=== PATIENT | female | born 1960 | race African-American/Black ===

== ENCOUNTER 2020-06-08 06:36 | Emergency (ER) | payer OTHER ==
[~2020-06-08 06:36] MED LIST: ACETAMINOPHEN-1 EAC1 PO; AMITRIPTYLINE 550 MG PO; CARDIZEM CD180 MG PO; CLONAZEPAM 1MG T1 MG PO; COREG25 MG PO; COUMADIN10 MG PO; COUMADIN5 MG PO; COZAAR 25MG TAB25 MG PO; FUROSEMIDE 40MG40 MG PO; K-DUR20 MEQ PO; LINZESS145 MCG PO; METFORMIN HCL500 M4 PO; NIFEREX150 MG PO; PLAQUENIL200 MG PO; PREDNISONE5 MG PO; PROTONIX 40MG T40 MG PO; SYMBICORT 1601 PUFFS PO; SYNTHROID50 MCG PO; VENTOLIN (2.5 MG/3 M PO; VENTOLIN HFA IN18 GM PO; VITAMIN D31000 UNI1 PO
[2020-06-08 08:06] LABS: BASOPHIL 0.2 % (0-2); EOSINOPHIL 0.7 % (0-5); HCT 32.7 % (37.0-47.0); HGB 9.4 g/dl (12.5-16.0); LYMPHOCYTE 12.5 % (15-48); MCH 26.8 pg (25.0-31.0); MCHC 28.7 g/dL (32.0-36.0); MCV 93.2 fL (78.0-100.0); MPV 9.5 fL (6.0-9.5); NEUTROPHIL 77.2 % (41-80); NRBC 0; PLT 309 K/uL (150-400); RBC 3.51 M/uL (4.20-5.40); RDW 14.1 % (11.5-14.0); WBC 11.1 K/uL (4.0-10.5)
[2020-06-08 08:15] LABS: INR 1.13 (0.9-1.2); PROTHROMBIN TIME 13.8 SECONDS (11.4-13.6); PTT 32.7 SECONDS (22.2-34.7)
[2020-06-08 08:22] LABS: ALBUMIN 3.2 g/dL (3.4-5.0); BILIRUBIN - TOTAL 0.2 mg/dL (0.2-1.0); BUN/CREAT RATIO (CALC) 10.3 RATIO; CREATININE 0.87 mg/dL (0.51-0.95); GLOBULIN (CALCULATION) 3.3 g/dL; POTASSIUM 3.9 mmol/L (3.5-5.1); TOTAL PROTEIN 6.5 g/dL (6.4-8.2)
[2020-06-08 08:30] LABS: LACTIC ACID 1.6 mmol/L (0.4-1.9)
[2020-06-08 08:48] LABS: CORONAVIRUS 2019 SARS-COV-2 NEGATIVE (NEGATIVE); INFLUENZA A NAA NEGATIVE (NEGATIVE)
[2020-11-23] MEDS ORDERED: KEFLEX250 MG PO (10:41)
[2020-12-14] MEDS ORDERED: ALDACTONE50 MG PO (14:15)
[2020-12-14] MEDS ORDERED: UROCIT-K10 MEQ PO (14:17)
[2020-12-14] MEDS ORDERED: PROPAFENONE HC300 MG PO (14:17)
[2020-12-19] MEDS ORDERED: PROZAC20 MG PO (08:41)
[2020-12-19] MEDS ORDERED: MYCOPHENOLATE PO (08:42)
== END 2020-06-08 12:41 | disposition home or self-care (01) ==
LOC: FER 06:36
PROVIDERS: Emergency Medicine
DX: I11.0 Hypertensive heart disease with heart failure (principal); I50.9 Heart failure, unspecified; I44.0 Atrioventricular block, first degree; R60.0 Localized edema; I25.10 Atherosclerotic heart disease of native coronary artery without angina pectoris; I48.91 Unspecified atrial fibrillation; Z99.81 Dependence on supplemental oxygen; Z88.2 Allergy status to sulfonamides; Z88.6 Allergy status to analgesic agent; Z88.8 Allergy status to other drugs, medicaments and biological substances; Z88.5 Allergy status to narcotic agent; Z20.822 Contact with and (suspected) exposure to COVID-19
CPT/HCPCS: 36415; 36600; 71045; 80053; 82803; 83605; 83880; 84484; 85025; 85379; 85610; 85730; 87040; 93005; 96374; J1940; U0002

== ENCOUNTER 2020-07-30 03:29 | Emergency (ER) | payer OTHER ==
[2020-07-30 04:39] LABS: BASOPHIL 0.2 % (0-2); EOSINOPHIL 0 % (0-5); HCT 29.6 % (37.0-47.0); HGB 8.8 g/dl (12.5-16.0); LYMPHOCYTE 8.2 % (15-48); MCH 26.7 pg (25.0-31.0); MCHC 29.7 g/dL (32.0-36.0); MCV 89.7 fL (78.0-100.0); MONOCYTE 8.6 % (0-12); MPV 10.3 fL (6.0-9.5); NEUTROPHIL 82.4 % (41-80); NRBC 0; PLT 250 K/uL (150-400); RDW 14.8 % (11.5-14.0); WBC 4.8 K/uL (4.0-10.5)
[2020-07-30 05:15] LABS: ALBUMIN 2.8 g/dL (3.4-5.0); BILIRUBIN - TOTAL 0.2 mg/dL (0.2-1.0); BUN/CREAT RATIO (CALC) 12.8 RATIO; CREATININE 0.94 mg/dL (0.51-0.95); GLOBULIN (CALCULATION) 3.8 g/dL; POTASSIUM 3.9 mmol/L (3.5-5.1); TOTAL PROTEIN 6.6 g/dL (6.4-8.2)
[2020-07-30 05:16] LABS: LACTIC ACID 1.9 mmol/L (0.4-1.9)
[2020-07-30 07:57] LABS: INFLUENZA A NAA NEGATIVE (NEGATIVE)
[2020-07-30 07:58] LABS: CORONAVIRUS 2019 SARS-COV-2 POSITIVE (NEGATIVE)
[2020-07-30] MEDS ORDERED: PREDNISONE 20MG20 MG PO (08:22)
[2020-07-30] MEDS ORDERED: CEFDINIR300 MG PO (08:22)
[2020-07-30] MEDS ORDERED: VENTOLIN HFA IN18 GM INH (08:22)
[2020-11-23] MEDS ORDERED: KEFLEX250 MG PO (10:41)
[2020-12-14] MEDS ORDERED: ALDACTONE50 MG PO (14:15)
[2020-12-14] MEDS ORDERED: PROPAFENONE HC300 MG PO (14:17)
[2020-12-14] MEDS ORDERED: UROCIT-K10 MEQ PO (14:17)
[2020-12-19] MEDS ORDERED: PROZAC20 MG PO (08:41)
[2020-12-19] MEDS ORDERED: MYCOPHENOLATE PO (08:42)
== END 2020-07-30 11:30 | disposition other institution (70) ==
LOC: FER 03:29
PROVIDERS: Emergency Medicine
DX: U07.1 COVID-19 (principal); J12.82 Pneumonia due to coronavirus disease 2019; R79.89 Other specified abnormal findings of blood chemistry; E11.9 Type 2 diabetes mellitus without complications; I50.9 Heart failure, unspecified; Z99.81 Dependence on supplemental oxygen; Z88.6 Allergy status to analgesic agent; Z88.2 Allergy status to sulfonamides; Z88.5 Allergy status to narcotic agent; Z88.1 Allergy status to other antibiotic agents; Z91.041 Radiographic dye allergy status
CPT/HCPCS: 36415; 71045; 80053; 83605; 83880; 84484; 85025; 93005; 94640; 94664; J1885; J2405; J2543; J2930; J7040; U0002

== ENCOUNTER 2020-10-03 08:07 | Inpatient (IN) | payer OTHER ==
[~2020-10-03 08:07] MED LIST changes: +CEFDINIR300 MG PO; +PREDNISONE 20MG20 MG PO; +VENTOLIN HFA IN18 GM INH
[2020-10-03 09:19] LABS: BASOPHIL 0.4 % (0-2); HCT 26.6 % (37.0-47.0); HGB 7.8 g/dl (12.5-16.0); LYMPHOCYTE 12.2 % (15-48); MCH 25.2 pg (25.0-31.0); MCHC 29.3 g/dL (32.0-36.0); MCV 85.8 fL (78.0-100.0); MONOCYTE 7.6 % (0-12); MPV 9.4 fL (6.0-9.5); NEUTROPHIL 76.7 % (41-80); NRBC 0; PLT 365 K/uL (150-400); RDW 15.7 % (11.5-14.0); WBC 9.2 K/uL (4.0-10.5)
[2020-10-03 09:28] LABS: INR 1.09 (0.9-1.2); PROTHROMBIN TIME 13.4 SECONDS (11.4-13.6); PTT 34.3 SECONDS (22.2-34.7)
[2020-10-03 09:35] LABS: ALBUMIN 3.1 g/dL (3.4-5.0); BILIRUBIN - TOTAL 0.4 mg/dL (0.2-1.0); BUN/CREAT RATIO (CALC) 8.6 RATIO; CREATININE 0.81 mg/dL (0.51-0.95); GLOBULIN (CALCULATION) 3.6 g/dL; POTASSIUM 3.5 mmol/L (3.5-5.1); TOTAL PROTEIN 6.7 g/dL (6.4-8.2)
[2020-10-03 10:23] LABS: CKMB <0.5 ng/mL (0.0-3.6); PRO-BNP 1379 pg/mL (<125)
[2020-10-03 10:54] LABS: RETICULOCYTE COUNT 2.4 % (1.0-2.0)
[2020-10-03 10:56] LABS: IRON % SATURATION 10.4 %SAT (20-50)
[2020-10-03 11:29] LABS: FOLIC ACID (SERUM) 15.8 ng/mL (8.6-58.9)
[2020-10-03] MEDS ORDERED: ELIQUIS2.5 MG PO (12:55)
[2020-10-03] MEDS ORDERED: RYTHMOL150 MG PO (12:55)
[2020-10-03] MEDS ORDERED: PHENERGAN25 M1 PO (12:59)
[2020-10-03] MEDS ORDERED: AMITIZA24 MCG PO (13:07)
[2020-10-03] MEDS ORDERED: PROAIR HFA8.5 GM INH (13:12)
[2020-10-03] MEDS ORDERED: TORSEMIDE10 MG PO (13:14)
[2020-10-04 06:11] LABS: BASOPHIL 0.6 % (0-2); EOSINOPHIL 2.9 % (0-5); HCT 25.6 % (37.0-47.0); HGB 7.4 g/dl (12.5-16.0); LYMPHOCYTE 19.9 % (15-48); MCH 24.8 pg (25.0-31.0); MCHC 28.9 g/dL (32.0-36.0); MCV 85.9 fL (78.0-100.0); MONOCYTE 9.6 % (0-12); MPV 9.5 fL (6.0-9.5); NEUTROPHIL 66.7 % (41-80); NRBC 0; PLT 342 K/uL (150-400); RBC 2.98 M/uL (4.20-5.40); RDW 15.6 % (11.5-14.0); WBC 6.9 K/uL (4.0-10.5)
[2020-10-04 06:29] LABS: BUN/CREAT RATIO (CALC) 8.3 RATIO; CREATININE 0.72 mg/dL (0.51-0.95); POTASSIUM 3.2 mmol/L (3.5-5.1)
[2020-10-05 06:16] LABS: BASOPHIL 0.6 % (0-2); EOSINOPHIL 2.6 % (0-5); HCT 28.3 % (37.0-47.0); HGB 8.2 g/dl (12.5-16.0); LYMPHOCYTE 21.5 % (15-48); MCH 25.2 pg (25.0-31.0); MCV 86.8 fL (78.0-100.0); MPV 9.8 fL (6.0-9.5); NEUTROPHIL 66.1 % (41-80); NRBC 0; PLT 378 K/uL (150-400); RBC 3.26 M/uL (4.20-5.40); RDW 15.4 % (11.5-14.0); WBC 8.9 K/uL (4.0-10.5)
[2020-10-05 06:47] LABS: BUN/CREAT RATIO (CALC) 13.3 RATIO; CREATININE 0.75 mg/dL (0.51-0.95); MAGNESIUM 1.8 mg/dL (1.8-2.4); POTASSIUM 4.1 mmol/L (3.5-5.1)
[2020-10-06 08:38] LABS: HGB 8.7 g/dl (12.5-16.0); MCH 25.4 pg (25.0-31.0); MCV 87.5 fL (78.0-100.0); MPV 9.3 fL (6.0-9.5); RBC 3.43 M/uL (4.20-5.40); RDW 15.5 % (11.5-14.0); WBC 9.9 K/uL (4.0-10.5)
[2020-10-06 08:57] LABS: BUN/CREAT RATIO (CALC) 13.4 RATIO; CREATININE 0.82 mg/dL (0.51-0.95); POTASSIUM 4.4 mmol/L (3.5-5.1)
[2020-10-06] MEDS ORDERED: BUMEX1 MG PO (13:55)
[2020-11-23] MEDS ORDERED: KEFLEX250 MG PO (10:41)
[2020-12-14] MEDS ORDERED: ALDACTONE50 MG PO (14:15)
[2020-12-14] MEDS ORDERED: PROPAFENONE HC300 MG PO (14:17)
[2020-12-14] MEDS ORDERED: UROCIT-K10 MEQ PO (14:17)
[2020-12-19] MEDS ORDERED: PROZAC20 MG PO (08:41)
[2020-12-19] MEDS ORDERED: MYCOPHENOLATE PO (08:42)
== END 2020-10-06 15:32 | disposition home or self-care (01) | DRG 293 ==
LOC: FER 08:07 → FMS 10:35
PROVIDERS: Emergency Medicine; ADMIT Internal Medicine
DX: I11.0 Hypertensive heart disease with heart failure (principal); I50.23 Acute on chronic systolic (congestive) heart failure; Z20.822 Contact with and (suspected) exposure to COVID-19; J84.10 Pulmonary fibrosis, unspecified; I25.10 Atherosclerotic heart disease of native coronary artery without angina pectoris; I48.0 Paroxysmal atrial fibrillation; M32.9 Systemic lupus erythematosus, unspecified; K21.9 Gastro-esophageal reflux disease without esophagitis; K57.90 Diverticulosis of intestine, part unspecified, without perforation or abscess without bleeding; M81.0 Age-related osteoporosis without current pathological fracture; D50.9 Iron deficiency anemia, unspecified; E87.6 Hypokalemia; Z86.16 Personal history of COVID-19; Z90.49 Acquired absence of other specified parts of digestive tract; Z96.82 Presence of neurostimulator; Z90.710 Acquired absence of both cervix and uterus; Z98.890 Other specified postprocedural states; Z88.8 Allergy status to other drugs, medicaments and biological substances; Z88.6 Allergy status to analgesic agent; Z91.041 Radiographic dye allergy status; Z79.01 Long term (current) use of anticoagulants; Z79.52 Long term (current) use of systemic steroids; Z79.899 Other long term (current) drug therapy
CPT/HCPCS: 36415; 71046; 80048; 80053; 82553; 82607; 82728; 82746; 83540; 83550; 83735; 83880; 84484; 85025; 85610; 85730; 86880; 93005; J1940; J2916; J7512; U0002

== ENCOUNTER → 2020-12-19 | Day surgery (SDC) | payer OTHER ==
[~2020-12-19] VITALS: Ht 162.6 cm; Wt 85.7 kg
[~2020-12-19] MED LIST changes: +ALDACTONE50 MG PO; +AMITIZA24 MCG PO; +AUGMENTIN 875-1 EACH PO; +BUMEX1 MG PO; +CYCLOBENZAPRINE10 MG PO; +DILAUDID2 MG PO; +ELIQUIS2.5 MG PO; +KEFLEX250 MG PO; +METFORMIN HCL500 MG PO; +MIRALAX17 GM PO; +MYCOPHENOLATE PO; +PHENERGAN25 M1 PO; +PREDNISONE 10MG10 MG PO; +PROAIR HFA8.5 GM INH; +PROPAFENONE HC300 MG PO; +PROZAC20 MG PO; +RYTHMOL150 MG PO; +SENOKOT8.6 MG PO; +TORSEMIDE10 MG PO; +UROCIT-K10 MEQ PO; +VIBRAMYCIN100 MG PO
[2020-12-19 09:18] LABS: HCT 30.8 % (37.0-47.0); HGB 9.4 g/dl (12.5-16.0); MCH 27.3 pg (25.0-31.0); MCHC 30.5 g/dL (32.0-36.0); MCV 89.5 fL (78.0-100.0); MPV 9.1 fL (6.0-9.5); RBC 3.44 M/uL (4.20-5.40); RDW 16.1 % (11.5-14.0); WBC 8.3 K/uL (4.0-10.5)
[2020-12-19 09:23] LABS: BUN/CREAT RATIO (CALC) 10.3 RATIO; CREATININE 0.97 mg/dL (0.51-0.95); POTASSIUM 3.7 mmol/L (3.5-5.1)
== END | disposition home or self-care (01) ==
LOC: FAS 08:10
PROVIDERS: Surgery
DX: D50.0 Iron deficiency anemia secondary to blood loss (chronic) (principal); K31.9 Disease of stomach and duodenum, unspecified; J84.10 Pulmonary fibrosis, unspecified; M19.90 Unspecified osteoarthritis, unspecified site; I11.0 Hypertensive heart disease with heart failure; I50.9 Heart failure, unspecified; I48.91 Unspecified atrial fibrillation; K50.90 Crohn's disease, unspecified, without complications; G43.909 Migraine, unspecified, not intractable, without status migrainosus; Z99.81 Dependence on supplemental oxygen; Z87.891 Personal history of nicotine dependence; Z86.010 Personal history of colon polyps; Z88.6 Allergy status to analgesic agent; Z91.041 Radiographic dye allergy status; Z88.5 Allergy status to narcotic agent; Z88.2 Allergy status to sulfonamides; Z88.8 Allergy status to other drugs, medicaments and biological substances; Z79.01 Long term (current) use of anticoagulants; Z79.899 Other long term (current) drug therapy
CPT/HCPCS: 36415; 74018; 80048; 82962; 93005; J1610; J2250; J2405; J2550; J2704; J7120

== ENCOUNTER 2021-02-18 08:34 | Emergency (ER) | payer OTHER ==
[~2021-02-18 08:34] MED LIST changes: -AUGMENTIN 875-1 EACH PO; -CYCLOBENZAPRINE10 MG PO; -DILAUDID2 MG PO; -METFORMIN HCL500 MG PO; -MIRALAX17 GM PO; -PREDNISONE 10MG10 MG PO; -SENOKOT8.6 MG PO; -VIBRAMYCIN100 MG PO
[2021-02-18 09:18] LABS: BASOPHIL 0.3 % (0-2); EOSINOPHIL 1.7 % (0-5); HGB 11.4 g/dl (12.5-16.0); LYMPHOCYTE 10.6 % (15-48); MCH 28.4 pg (25.0-31.0); MCHC 30.8 g/dL (32.0-36.0); MCV 92.3 fL (78.0-100.0); MONOCYTE 8.8 % (0-12); MPV 9.2 fL (6.0-9.5); NEUTROPHIL 78.3 % (41-80); NRBC 0; PLT 305 K/uL (150-400); RBC 4.01 M/uL (4.20-5.40); RDW 13.4 % (11.5-14.0); WBC 8.8 K/uL (4.0-10.5)
[2021-02-18 09:37] LABS: ALBUMIN 3.7 g/dL (3.4-5.0); BILIRUBIN - TOTAL 0.2 mg/dL (0.2-1.0); BUN/CREAT RATIO (CALC) 9.8 RATIO; CREATININE 0.82 mg/dL (0.51-0.95); GLOBULIN (CALCULATION) 3.9 g/dL; TOTAL PROTEIN 7.6 g/dL (6.4-8.2)
[2021-02-18 10:33] LABS: CORONAVIRUS 2019 SARS-COV-2 NEGATIVE (NEGATIVE); INFLUENZA A NAA NEGATIVE (NEGATIVE)
[2021-02-18] MEDS ORDERED: CYCLOBENZAPRINE10 MG PO (11:33)
[2021-02-18] MEDS ORDERED: PREDNISONE 20MG20 MG PO (11:33)
== END 2021-02-18 12:30 | disposition home or self-care (01) ==
LOC: FER 08:34
PROVIDERS: Internal Medicine
DX: J84.10 Pulmonary fibrosis, unspecified (principal); M25.511 Pain in right shoulder; D64.9 Anemia, unspecified; I11.0 Hypertensive heart disease with heart failure; I50.9 Heart failure, unspecified; Z88.6 Allergy status to analgesic agent; Z88.8 Allergy status to other drugs, medicaments and biological substances; Z88.5 Allergy status to narcotic agent; Z91.041 Radiographic dye allergy status
CPT/HCPCS: 36415; 71045; 71250; 71275; 80053; 83605; 83880; 84145; 84484; 85025; 93005; 96372; J1170; J1200; J1940; J2405; J2550; J2930; Q9967; U0002

== ENCOUNTER 2021-02-19 15:56 | Emergency (ER) | payer OTHER ==
[~2021-02-19 15:56] MED LIST changes: +CYCLOBENZAPRINE10 MG PO
[2021-02-19 21:41] LABS: BASOPHIL 0.4 % (0-2); EOSINOPHIL 1.2 % (0-5); HCT 41.7 % (37.0-47.0); HGB 12.8 g/dl (12.5-16.0); LYMPHOCYTE 6.8 % (15-48); MCH 28.6 pg (25.0-31.0); MCHC 30.7 g/dL (32.0-36.0); MCV 93.1 fL (78.0-100.0); MONOCYTE 7.4 % (0-12); MPV 9.2 fL (6.0-9.5); NEUTROPHIL 83.9 % (41-80); NRBC 0; PLT 337 K/uL (150-400); RBC 4.48 M/uL (4.20-5.40); RDW 13.5 % (11.5-14.0); WBC 11.3 K/uL (4.0-10.5)
[2021-02-19 22:01] LABS: BILIRUBIN - TOTAL 0.3 mg/dL (0.2-1.0); BUN/CREAT RATIO (CALC) 17.1 RATIO; CREATININE 0.82 mg/dL (0.51-0.95); GLOBULIN (CALCULATION) 4.4 g/dL; POTASSIUM 3.5 mmol/L (3.5-5.1); TOTAL PROTEIN 8.4 g/dL (6.4-8.2)
[2021-02-19 22:07] LABS: LACTIC ACID 2.1 mmol/L (0.4-1.9)
[2021-02-20] MEDS ORDERED: AUGMENTIN 875-1 EACH PO (02:43)
[2021-02-20] MEDS ORDERED: DILAUDID2 MG PO (02:43)
[2021-02-21] MEDS ORDERED: BUMEX1 MG PO (06:16)
[2021-02-21] MEDS ORDERED: PREDNISONE 10MG10 MG PO (06:17)
[2021-02-21] MEDS ORDERED: METFORMIN HCL500 MG PO (06:17)
== END 2021-02-20 03:15 | disposition home or self-care (01) ==
LOC: FER 15:56
PROVIDERS: Emergency Medicine Emergency Medical Services
DX: J84.10 Pulmonary fibrosis, unspecified (principal); I11.0 Hypertensive heart disease with heart failure; J98.11 Atelectasis; I50.9 Heart failure, unspecified; I48.91 Unspecified atrial fibrillation; E11.9 Type 2 diabetes mellitus without complications; Z86.16 Personal history of COVID-19; Z88.6 Allergy status to analgesic agent; Z88.5 Allergy status to narcotic agent; Z88.1 Allergy status to other antibiotic agents
CPT/HCPCS: 36415; 71275; 80053; 83605; 83880; 84145; 84484; 85025; 93005; J1170; J1200; J1940; J2405; J2930; Q9967

== ENCOUNTER 2021-02-21 05:55 | Inpatient (IN) | payer OTHER ==
[~2021-02-21] VITALS: Ht 162.6 cm; Wt 90.0 kg
[~2021-02-21 05:55] MED LIST changes: +AUGMENTIN 875-1 EACH PO; +DILAUDID2 MG PO
[2021-02-21] MEDS ORDERED: BUMEX1 MG PO (06:16)
[2021-02-21] MEDS ORDERED: METFORMIN HCL500 MG PO (06:17)
[2021-02-21] MEDS ORDERED: PREDNISONE 10MG10 MG PO (06:17)
[2021-02-21 11:58] LABS: C-REACTIVE PROTEIN 3.6 mg/dL (<=0.90)
[2021-02-22 07:02] LABS: BASOPHIL 0.3 % (0-2); EOSINOPHIL 0.3 % (0-5); HCT 36.3 % (37.0-47.0); MCH 28.4 pg (25.0-31.0); MCHC 30.3 g/dL (32.0-36.0); MCV 93.8 fL (78.0-100.0); MONOCYTE 8.3 % (0-12); MPV 9.1 fL (6.0-9.5); NEUTROPHIL 84.8 % (41-80); NRBC 0; PLT 169 K/uL (150-400); RBC 3.87 M/uL (4.20-5.40); RDW 13.2 % (11.5-14.0); WBC 6.8 K/uL (4.0-10.5)
[2021-02-22 07:05] LABS: LYMPHOCYTE 5.7 % (15-48)
[2021-02-22 07:18] LABS: ALBUMIN 2.8 g/dL (3.4-5.0); BILIRUBIN - TOTAL 0.3 mg/dL (0.2-1.0); BUN/CREAT RATIO (CALC) 18.7 RATIO; C-REACTIVE PROTEIN 12.4 mg/dL (<=0.90); CREATININE 0.75 mg/dL (0.51-0.95); GLOBULIN (CALCULATION) 3.1 g/dL; POTASSIUM 4.2 mmol/L (3.5-5.1)
[2021-02-22 07:19] LABS: TOTAL PROTEIN 5.9 g/dL (6.4-8.2)
[2021-02-23 04:28] LABS: BASOPHIL 0.3 % (0-2); EOSINOPHIL 0.1 % (0-5); HCT 33.7 % (37.0-47.0); HGB 10.5 g/dl (12.5-16.0); MCH 28.5 pg (25.0-31.0); MCHC 31.2 g/dL (32.0-36.0); MCV 91.6 fL (78.0-100.0); MONOCYTE 7.9 % (0-12); MPV 9.3 fL (6.0-9.5); NRBC 0; PLT 191 K/uL (150-400); RBC 3.68 M/uL (4.20-5.40); RDW 13.1 % (11.5-14.0); WBC 7.2 K/uL (4.0-10.5)
[2021-02-23 04:29] LABS: NEUTROPHIL 82.3 % (41-80)
[2021-02-23 04:51] LABS: ALBUMIN 2.8 g/dL (3.4-5.0); BILIRUBIN - TOTAL 0.3 mg/dL (0.2-1.0); CREATININE 0.8 mg/dL (0.51-0.95); GLOBULIN (CALCULATION) 3.8 g/dL; TOTAL PROTEIN 6.6 g/dL (6.4-8.2)
[2021-02-24 04:39] LABS: BASOPHIL 0.2 % (0-2); EOSINOPHIL 1.1 % (0-5); HCT 31.1 % (37.0-47.0); HGB 9.8 g/dl (12.5-16.0); LYMPHOCYTE 33.2 % (15-48); MCH 28.4 pg (25.0-31.0); MCHC 31.5 g/dL (32.0-36.0); MCV 90.1 fL (78.0-100.0); MONOCYTE 8.6 % (0-12); MPV 9.5 fL (6.0-9.5); NRBC 0; PLT 188 K/uL (150-400); RBC 3.45 M/uL (4.20-5.40); RDW 13.2 % (11.5-14.0); WBC 6.3 K/uL (4.0-10.5)
[2021-02-24 04:46] LABS: NEUTROPHIL 56.4 % (41-80)
[2021-02-24 04:59] LABS: ALBUMIN 2.5 g/dL (3.4-5.0); BILIRUBIN - TOTAL 0.3 mg/dL (0.2-1.0); BUN/CREAT RATIO (CALC) 23.1 RATIO; CREATININE 1.17 mg/dL (0.51-0.95); GLOBULIN (CALCULATION) 3.4 g/dL; POTASSIUM 3.6 mmol/L (3.5-5.1); TOTAL PROTEIN 5.9 g/dL (6.4-8.2)
--- NOTE | 2021-02-24 09:20 | NUR ---
NOTED PATIENT ELEVATED RHYTHM THIS AM, CARDS SAW, NO CHANGE IN ORDERS, MEDS GIVEN ORDERED EARLY TO ASSIST WITH RATE CONTROL, MD NOTIFIED RATE CLIMBING TO 135, PATIENT WITHOUT S/S DISTRESS, DENIES PAIN, MILD SOA FUNNY FEELING TO HEART, EKG ORDERED, MD ALVARO NOTIFIED, INFORMED OF CARDIOLOGY SEEING AND MEDS GIVEN THIS AM, AGREEABLE BUT WILL HOLD BUMEX AND ALDACTONE THIS EVENING, ALSO WITH ORDERS NOTED, IMPROVEMENT NOTED WITH AM MEDS AND FURTHER IMPROVEMENT AND BACK TO NSR AFTER LOPRESSOR GIVEN, PATIENT EDUCATED ON MEDS AND STATUS AT EACH STAGE OF CHANGES THIS AM
[2021-02-24 14:10] LABS: BUN/CREAT RATIO (CALC) 25.5 RATIO; CREATININE 1.06 mg/dL (0.51-0.95); POTASSIUM 4.4 mmol/L (3.5-5.1)
[2021-02-25 05:46] LABS: BASOPHIL 0.7 % (0-2); EOSINOPHIL 1.8 % (0-5); HGB 9.6 g/dl (12.5-16.0); LYMPHOCYTE 40.2 % (15-48); MCH 28.3 pg (25.0-31.0); MONOCYTE 10.3 % (0-12); MPV 9.3 fL (6.0-9.5); NEUTROPHIL 46.7 % (41-80); NRBC 0; PLT 200 K/uL (150-400); RBC 3.39 M/uL (4.20-5.40); RDW 13.4 % (11.5-14.0); WBC 6.7 K/uL (4.0-10.5)
[2021-02-25 05:56] LABS: MCV 94.4 fL (78.0-100.0)
[2021-02-25 06:04] LABS: ALBUMIN 2.6 g/dL (3.4-5.0); BILIRUBIN - TOTAL 0.3 mg/dL (0.2-1.0); CREATININE 0.87 mg/dL (0.51-0.95); GLOBULIN (CALCULATION) 3.5 g/dL; MAGNESIUM 2.4 mg/dL (1.8-2.4); POTASSIUM 3.9 mmol/L (3.5-5.1); TOTAL PROTEIN 6.1 g/dL (6.4-8.2)
[2021-02-25] MEDS ORDERED: SENOKOT8.6 MG PO (10:33)
[2021-02-25] MEDS ORDERED: MIRALAX17 GM PO (10:33)
[2021-02-25] MEDS ORDERED: VIBRAMYCIN100 MG PO (10:33)
== END 2021-02-25 13:45 | disposition home or self-care (01) | DRG 280 ==
LOC: FMS 05:55
PROVIDERS: Family Medicine; ADMIT Internal Medicine
DX: I50.23 Acute on chronic systolic (congestive) heart failure (principal); I21.A1 Myocardial infarction type 2; J18.9 Pneumonia, unspecified organism; N17.9 Acute kidney failure, unspecified; I48.92 Unspecified atrial flutter; I95.9 Hypotension, unspecified; J84.112 Idiopathic pulmonary fibrosis; E11.9 Type 2 diabetes mellitus without complications; K59.03 Drug induced constipation; D50.9 Iron deficiency anemia, unspecified; M81.8 Other osteoporosis without current pathological fracture; T38.0X5A Adverse effect of glucocorticoids and synthetic analogues, initial encounter; E03.9 Hypothyroidism, unspecified; M32.9 Systemic lupus erythematosus, unspecified; Z88.2 Allergy status to sulfonamides; Z88.0 Allergy status to penicillin; Z88.5 Allergy status to narcotic agent; Z88.6 Allergy status to analgesic agent; Z88.8 Allergy status to other drugs, medicaments and biological substances; Z91.041 Radiographic dye allergy status; Z79.01 Long term (current) use of anticoagulants; Z79.84 Long term (current) use of oral hypoglycemic drugs; Z79.52 Long term (current) use of systemic steroids; Z79.899 Other long term (current) drug therapy; Z90.710 Acquired absence of both cervix and uterus; Z90.49 Acquired absence of other specified parts of digestive tract; Z98.890 Other specified postprocedural states; Z83.3 Family history of diabetes mellitus; Z82.49 Family history of ischemic heart disease and other diseases of the circulatory system; Z86.711 Personal history of pulmonary embolism
CPT/HCPCS: 36415; 71045; 71250; 71275; 80048; 80053; 80061; 83605; 83735; 83880; 84145; 84443; 84484; 85025; 86140; 93005; 94010; 94760; 94762; 96372; J1170; J1200; J1885; J1940; J2405; J2550; J2930; J3475; J7050; J7512; Q0169; Q9967; U0002

== ENCOUNTER 2021-03-05 12:18 | Emergency (ER) | payer OTHER ==
[~2021-03-05 12:18] MED LIST changes: +METFORMIN HCL500 MG PO; +MIRALAX17 GM PO; +PREDNISONE 10MG10 MG PO; +SENOKOT8.6 MG PO; +VIBRAMYCIN100 MG PO
[2021-03-05 14:16] LABS: BASOPHIL 0.4 % (0-2); EOSINOPHIL 0.3 % (0-5); HCT 33.5 % (37.0-47.0); HGB 10.1 g/dl (12.5-16.0); LYMPHOCYTE 9.2 % (15-48); MCH 28.1 pg (25.0-31.0); MCHC 30.1 g/dL (32.0-36.0); MCV 93.1 fL (78.0-100.0); MPV 9.6 fL (6.0-9.5); NEUTROPHIL 83.6 % (41-80); NRBC 0; PLT 450 K/uL (150-400); RDW 13.3 % (11.5-14.0); WBC 12.8 K/uL (4.0-10.5)
[2021-03-05 14:26] LABS: ALBUMIN 3.2 g/dL (3.4-5.0); BILIRUBIN - TOTAL 0.3 mg/dL (0.2-1.0); BUN/CREAT RATIO (CALC) 12.4 RATIO; CREATININE 0.97 mg/dL (0.51-0.95); GLOBULIN (CALCULATION) 4.3 g/dL; POTASSIUM 3.9 mmol/L (3.5-5.1); TOTAL PROTEIN 7.5 g/dL (6.4-8.2)
[2021-03-05 16:00] LABS: CORONAVIRUS 2019 SARS-COV-2 NEGATIVE (NEGATIVE); INFLUENZA A NAA NEGATIVE (NEGATIVE)
[2021-03-05] MEDS ORDERED: PREDNISONE 20MG20 MG PO (16:40)
== END 2021-03-05 18:41 | disposition home or self-care (01) ==
LOC: FER 12:18
PROVIDERS: Internal Medicine
DX: J84.10 Pulmonary fibrosis, unspecified (principal); D64.9 Anemia, unspecified; R07.81 Pleurodynia; I48.91 Unspecified atrial fibrillation; I50.9 Heart failure, unspecified; Z20.822 Contact with and (suspected) exposure to COVID-19; Z90.49 Acquired absence of other specified parts of digestive tract; Z98.890 Other specified postprocedural states; Z88.1 Allergy status to other antibiotic agents; Z88.5 Allergy status to narcotic agent; Z88.6 Allergy status to analgesic agent; Z91.041 Radiographic dye allergy status
CPT/HCPCS: 36415; 71045; 71250; 80053; 84145; 84484; 85025; 93005; J2930; U0002

== ENCOUNTER 2021-03-09 17:14 | Emergency (ER) | payer OTHER ==
[2021-03-09 19:36] LABS: BASOPHIL 0.2 % (0-2); EOSINOPHIL 0.1 % (0-5); HCT 36.1 % (37.0-47.0); HGB 11.1 g/dl (12.5-16.0); LYMPHOCYTE 9.2 % (15-48); MCH 28.2 pg (25.0-31.0); MCHC 30.7 g/dL (32.0-36.0); MCV 91.6 fL (78.0-100.0); MONOCYTE 7.7 % (0-12); MPV 8.7 fL (6.0-9.5); NEUTROPHIL 82.4 % (41-80); NRBC 0; PLT 409 K/uL (150-400); RBC 3.94 M/uL (4.20-5.40); RDW 13.3 % (11.5-14.0); WBC 10.1 K/uL (4.0-10.5)
[2021-03-09 19:55] LABS: ALBUMIN 3.2 g/dL (3.4-5.0); BILIRUBIN - TOTAL 0.3 mg/dL (0.2-1.0); BUN/CREAT RATIO (CALC) 9.3 RATIO; CREATININE 1.5 mg/dL (0.51-0.95); GLOBULIN (CALCULATION) 4.2 g/dL; POTASSIUM 3.2 mmol/L (3.5-5.1); TOTAL PROTEIN 7.4 g/dL (6.4-8.2)
[2021-03-09 23:41] LABS: BILIRUBIN NEGATIVE (NEGATIVE); BLOOD NEGATIVE Ery/uL (NEGATIVE); CLARITY CLEAR (CLEAR); COLOR YELLOW (YELLOW); GLUCOSE (U) NORMAL (NORMAL); LEUKOCYTES NEGATIVE Leu/uL (NEGATIVE); NITRITE NEGATIVE (NEGATIVE); PROTEIN NEGATIVE (NEGATIVE); SPECIFIC GRAVITY >=1.030 (1.001-1.030); UROBILINOGEN 0.2 mg/dL (0.2-1.0); pH 5.5 (5.0-9.0)
[2021-03-10] MEDS ORDERED: DILAUDID2 MG PO ×2 (02:37→03:17)
[2021-03-10] MEDS ORDERED: CARAFATE1 GM PO ×2 (02:37→03:17)
[2021-03-10] MEDS ORDERED: ONDANSETRON ODT4 MG SL ×2 (02:37→03:17)
[2021-03-10] MEDS ORDERED: BENTYL10 MG PO ×2 (02:37→03:17)
[2021-03-10] MEDS ORDERED: BACITRACIN15 GM TOP ×2 (02:42→03:17)
== END 2021-03-10 03:20 | disposition home or self-care (01) ==
LOC: FER 17:14
PROVIDERS: Nurse Practitioner Family
DX: R10.9 Unspecified abdominal pain (principal); R11.0 Nausea; E86.0 Dehydration; I50.9 Heart failure, unspecified; Z88.6 Allergy status to analgesic agent; Z88.5 Allergy status to narcotic agent; Z91.041 Radiographic dye allergy status; Z20.822 Contact with and (suspected) exposure to COVID-19
CPT/HCPCS: 36415; 74022; 80053; 81003; 85025; J1170; J2405; J3480; J7030; U0002

== ENCOUNTER 2021-07-29 19:24 | Inpatient (IN) | payer OTHER ==
[~2021-07-29] VITALS: Ht 162.6 cm; Wt 79.9 kg
[~2021-07-29 19:24] MED LIST changes: +BACITRACIN15 GM TOP; +BENTYL10 MG PO; +CARAFATE1 GM PO; +ONDANSETRON ODT4 MG SL
[2021-07-29 21:01] LABS: BASOPHIL 0.2 % (0-2); EOSINOPHIL 0.1 % (0-5); HCT 35.5 % (37.0-47.0); HGB 11.6 g/dl (12.5-16.0); LYMPHOCYTE 7.8 % (15-48); MCH 29.7 pg (25.0-31.0); MCHC 32.7 g/dL (32.0-36.0); MONOCYTE 7.1 % (0-12); MPV 9.1 fL (6.0-9.5); NEUTROPHIL 84.4 % (41-80); NRBC 0; PLT 300 K/uL (150-400); RDW 12.9 % (11.5-14.0); WBC 12.4 K/uL (4.0-10.5)
[2021-07-29 21:22] LABS: ALBUMIN 3.5 g/dL (3.4-5.0); BILIRUBIN - TOTAL 0.3 mg/dL (0.2-1.0); BUN/CREAT RATIO (CALC) 20.9 RATIO; CREATININE 0.86 mg/dL (0.51-0.95); GLOBULIN (CALCULATION) 4.3 g/dL; TOTAL PROTEIN 7.8 g/dL (6.4-8.2)
[2021-07-29 22:00] LABS: CORONAVIRUS 2019 SARS-COV-2 NEGATIVE (NEGATIVE); INFLUENZA A NAA NEGATIVE (NEGATIVE)
[2021-07-29 23:47] LABS: LACTIC ACID 1.3 mmol/L (0.4-1.9)
[2021-07-30] MEDS ORDERED: ELAVIL50 MG PO (01:55)
[2021-07-30] MEDS ORDERED: PROPAFENONE HC225 MG PO (01:56)
[2021-07-30] MEDS ORDERED: PLAQUENIL200 MG PO (01:57)
[2021-07-30] MEDS ORDERED: BUMEX1 MG PO (01:58)
[2021-07-30] MEDS ORDERED: ELIQUIS5 MG PO (01:58)
[2021-07-30] MEDS ORDERED: VITAMIN D325 MC4 PO (01:59)
[2021-07-30] MEDS ORDERED: TRULANCE3 MG PO (02:00)
[2021-07-30] MEDS ORDERED: ALDACTONE25 MG PO (02:00)
[2021-07-30] MEDS ORDERED: COREG12.5 MG PO (02:01)
[2021-07-30] MEDS ORDERED: UROCIT-K10 MEQ PO (02:02)
[2021-07-30] MEDS ORDERED: PREDNISONE5 MG PO (02:03)
[2021-07-30] MEDS ORDERED: PROZAC20 MG PO (02:04)
[2021-07-30] MEDS ORDERED: PROTONIX 40MG T40 MG PO (02:04)
[2021-07-30] MEDS ORDERED: CELLCEPT250 MG PO (02:07)
[2021-07-30 06:42] LABS: BASOPHIL 0.4 % (0-2); EOSINOPHIL 0.2 % (0-5); HCT 28.9 % (37.0-47.0); HGB 9.3 g/dl (12.5-16.0); LYMPHOCYTE 16.7 % (15-48); MCH 29.4 pg (25.0-31.0); MCHC 32.2 g/dL (32.0-36.0); MCV 91.5 fL (78.0-100.0); MPV 9.3 fL (6.0-9.5); NEUTROPHIL 70.4 % (41-80); NRBC 0; PLT 237 K/uL (150-400); RBC 3.16 M/uL (4.20-5.40); RDW 12.8 % (11.5-14.0); WBC 9.3 K/uL (4.0-10.5)
[2021-07-30 07:08] LABS: BUN/CREAT RATIO (CALC) 18.5 RATIO; CREATININE 0.81 mg/dL (0.51-0.95); POTASSIUM 3.3 mmol/L (3.5-5.1)
[2021-07-30] MEDS ORDERED: MYCOPHENOLIC A180 MG PO (07:14)
[2021-07-30 16:23] LABS: BILIRUBIN NEGATIVE (NEGATIVE); BLOOD NEGATIVE Ery/uL (NEGATIVE); CLARITY CLOUDY (CLEAR); COLOR YELLOW (YELLOW); GLUCOSE (U) NORMAL (NORMAL); LEUKOCYTES TRACE Leu/uL (NEGATIVE); NITRITE POSITIVE (NEGATIVE); PROTEIN NEGATIVE (NEGATIVE); SPECIFIC GRAVITY 1.025 (1.001-1.030); UROBILINOGEN 0.2 mg/dL (0.2-1.0)
[2021-07-30 16:28] LABS: AMPHETAMINES NEGATIVE (NEGATIVE); BARBITURATES NEGATIVE (NEGATIVE); ECSTASY (MDMA) NEGATIVE (NEGATIVE); MARIJUANA (THC) NEGATIVE (NEGATIVE); METHADONE NEGATIVE (NEGATIVE); OPIATES POSITIVE (NEGATIVE); OXYCODONE NEGATIVE (NEGATIVE)
[2021-07-30 16:32] LABS: AMORPHOUS URATES CRYSTALS LARGE; BACTERIA TRACE
--- NOTE | 2021-07-30 17:07 | NUR ---
07/30/21 Ms. Sandoval lives alone in a subsidized rent apartment. She is supported by food stamps and [facility]. PCP is Dr. Whiting. Ms. Sandoval does not have a car. Her daughter, sister and nephew provide transportatioportation. She has 02 at 4 L and portable tanks.
[2021-07-31 05:40] LABS: BASOPHIL 0.4 % (0-2); EOSINOPHIL 0.4 % (0-5); HGB 9.2 g/dl (12.5-16.0); LYMPHOCYTE 13.5 % (15-48); MCH 28.9 pg (25.0-31.0); MCHC 30.7 g/dL (32.0-36.0); MCV 94.3 fL (78.0-100.0); MONOCYTE 8.3 % (0-12); MPV 9.2 fL (6.0-9.5); NRBC 0; PLT 235 K/uL (150-400); RBC 3.18 M/uL (4.20-5.40); RDW 12.6 % (11.5-14.0); WBC 8.2 K/uL (4.0-10.5)
[2021-07-31 06:21] LABS: BUN/CREAT RATIO (CALC) 16.4 RATIO; CREATININE 0.61 mg/dL (0.51-0.95); POTASSIUM 3.6 mmol/L (3.5-5.1)
[2021-08-01 06:46] LABS: BASOPHIL 0.2 % (0-2); EOSINOPHIL 1.1 % (0-5); HCT 27.9 % (37.0-47.0); HGB 8.9 g/dl (12.5-16.0); LYMPHOCYTE 18.4 % (15-48); MCH 29.5 pg (25.0-31.0); MCHC 31.9 g/dL (32.0-36.0); MCV 92.4 fL (78.0-100.0); MONOCYTE 9.4 % (0-12); MPV 9.3 fL (6.0-9.5); NEUTROPHIL 70.7 % (41-80); NRBC 0; PLT 229 K/uL (150-400); RBC 3.02 M/uL (4.20-5.40); RDW 12.6 % (11.5-14.0); WBC 8.4 K/uL (4.0-10.5)
[2021-08-01 07:05] LABS: BUN/CREAT RATIO (CALC) 5.6 RATIO; CREATININE 0.54 mg/dL (0.51-0.95); POTASSIUM 2.9 mmol/L (3.5-5.1)
[2021-08-02 07:17] LABS: ALBUMIN 2.1 g/dL (3.4-5.0); BILIRUBIN - TOTAL 0.2 mg/dL (0.2-1.0); BUN/CREAT RATIO (CALC) 3.2 RATIO; CREATININE 0.63 mg/dL (0.51-0.95); GLOBULIN (CALCULATION) 3.3 g/dL; POTASSIUM 3.8 mmol/L (3.5-5.1); TOTAL PROTEIN 5.4 g/dL (6.4-8.2)
[2021-08-02] MEDS ORDERED: MIRALAX 238GM238 GM PO (11:52)
== END 2021-08-02 14:39 | disposition home or self-care (01) | DRG 389 ==
LOC: FER 19:24 → FMS 07-30 00:27 → FER 07-30 01:20 → FMS 07-31 15:32
PROVIDERS: Allergy & Immunology Allergy; Internal Medicine; Nurse Practitioner Acute Care; ADMIT Family Medicine
DX: K56.600 Partial intestinal obstruction, unspecified as to cause (principal); J96.11 Chronic respiratory failure with hypoxia; I50.22 Chronic systolic (congestive) heart failure; R65.10 Systemic inflammatory response syndrome (SIRS) of non-infectious origin without acute organ dysfunction; I48.92 Unspecified atrial flutter; Z20.822 Contact with and (suspected) exposure to COVID-19; J84.112 Idiopathic pulmonary fibrosis; I11.0 Hypertensive heart disease with heart failure; M32.9 Systemic lupus erythematosus, unspecified; I48.91 Unspecified atrial fibrillation; I27.20 Pulmonary hypertension, unspecified; K21.9 Gastro-esophageal reflux disease without esophagitis; E03.9 Hypothyroidism, unspecified; F41.9 Anxiety disorder, unspecified; E11.43 Type 2 diabetes mellitus with diabetic autonomic (poly)neuropathy; K31.84 Gastroparesis; J43.9 Emphysema, unspecified; D64.9 Anemia, unspecified; I25.10 Atherosclerotic heart disease of native coronary artery without angina pectoris; E11.65 Type 2 diabetes mellitus with hyperglycemia; K59.09 Other constipation; M34.9 Systemic sclerosis, unspecified; Z99.81 Dependence on supplemental oxygen; Z86.16 Personal history of COVID-19; Z90.49 Acquired absence of other specified parts of digestive tract; Z90.710 Acquired absence of both cervix and uterus; Z98.890 Other specified postprocedural states; Z91.041 Radiographic dye allergy status; Z88.2 Allergy status to sulfonamides; Z88.5 Allergy status to narcotic agent; Z88.6 Allergy status to analgesic agent; Z79.01 Long term (current) use of anticoagulants; Z79.52 Long term (current) use of systemic steroids; Z79.899 Other long term (current) drug therapy
CPT/HCPCS: 36415; 36600; 71250; 74018; 74019; 80048; 80053; 80305; 81001; 82803; 82962; 83605; 83690; 83880; 84145; 84484; 85025; 87040; 93005; C9113; J1170; J1200; J1650; J1885; J2405; J2543; J2550; J3480; J7030; J7040; J7070; J7512; U0002

== ENCOUNTER 2022-02-11 16:26 | Emergency (ER) | payer OTHER ==
[~2022-02-11 16:26] MED LIST changes: +ALDACTONE25 MG PO; +CELLCEPT250 MG PO; +COREG12.5 MG PO; +ELAVIL50 MG PO; +ELIQUIS5 MG PO; +MIRALAX 238GM238 GM PO; +MYCOPHENOLIC A180 MG PO; +PROPAFENONE HC225 MG PO; +TRULANCE3 MG PO; +VITAMIN D325 MC4 PO
[2022-02-11 19:16] LABS: CORONAVIRUS 2019 SARS-COV-2 NEGATIVE (NEGATIVE); INFLUENZA A NAA NEGATIVE (NEGATIVE)
[2022-02-11 21:47] LABS: BASOPHIL 0.5 % (0-2); EOSINOPHIL 0.9 % (0-5); HCT 29.2 % (37.0-47.0); LYMPHOCYTE 23.9 % (15-48); MCH 27.6 pg (25.0-31.0); MCHC 30.8 g/dL (32.0-36.0); MCV 89.6 fL (78.0-100.0); MONOCYTE 10.1 % (0-12); MPV 9.4 fL (6.0-9.5); NEUTROPHIL 64.4 % (41-80); NRBC 0; PLT 338 K/uL (150-400); RBC 3.26 M/uL (4.20-5.40); RDW 12.9 % (11.5-14.0); WBC 8.5 K/uL (4.0-10.5)
[2022-02-11 21:52] LABS: INR 1.1 (0.9-1.2); PROTHROMBIN TIME 13.9 SECONDS (11.9-13.9); PTT 29.5 SECONDS (24.9-34.6)
[2022-02-11 22:03] LABS: ALBUMIN 3.3 g/dL (3.4-5.0); BILIRUBIN - TOTAL 0.2 mg/dL (0.2-1.0); BUN/CREAT RATIO (CALC) 12.4 RATIO; CREATININE 0.97 mg/dL (0.51-0.95); GLOBULIN (CALCULATION) 3.6 g/dL; POTASSIUM 3.8 mmol/L (3.5-5.1); TOTAL PROTEIN 6.9 g/dL (6.4-8.2)
== END 2022-02-11 23:00 | disposition home or self-care (01) ==
LOC: FER 16:26
PROVIDERS: Internal Medicine
DX: R04.0 Epistaxis (principal); I50.9 Heart failure, unspecified; Z79.82 Long term (current) use of aspirin; Z88.5 Allergy status to narcotic agent; Z88.6 Allergy status to analgesic agent; Z91.041 Radiographic dye allergy status; Z20.822 Contact with and (suspected) exposure to COVID-19
CPT/HCPCS: 36415; 71045; 80053; 83880; 84145; 84484; 85025; 85610; 85730; 93005; U0002